=== PATIENT | female | born 1965 ===

== ENCOUNTER 2025-06-07 06:26 | Day surgery (SDC) | payer OTHER, SELFPAY | END 2025-06-07 10:57 | disposition home or self-care (01) | LOC: GI 06:26 | PROVIDERS: ATTENDING PHYSICIAN Internal Medicine Gastroenterology; FAMILY PHYSICIAN Family Medicine | DX: Z12.11 Encounter for screening for malignant neoplasm of colon (principal); K57.30 Diverticulosis of large intestine without perforation or abscess without bleeding; K64.8 Other hemorrhoids; K20.90 Esophagitis, unspecified without bleeding; K44.9 Diaphragmatic hernia without obstruction or gangrene; K31.7 Polyp of stomach and duodenum; R12 Heartburn; Z86.0100 Personal history of colon polyps, unspecified; K31.89 Other diseases of stomach and duodenum | CPT/HCPCS: 43239; G0105; 88305; 88342 ==